=== PATIENT | male | born 1980 | race Caucasian/White ===

== ENCOUNTER 2018-06-19 04:43 | Outpatient (CLI) | payer MEDICAID, SELFPAY ==
[2018-06-19 11:09] LABS: ALT 26 U/L (12-78); AST 19 U/L (15-37); Albumin 3.9 g/dL (3.4-5.0); Alkaline Phosphatase 84 U/L (46-116); Anion Gap 8.9 mmol/L (3-11); BUN 17 mg/dL (7-18); Bilirubin, Total 0.4 mg/dL (0.2-1.0); CO2 28.1 mmol/L (21.0-32.0); CREATININE 1.06 mg/dL (0.70-1.30); Calcium 9.6 mg/dL (8.5-10.1); Chloride 103 mmol/L (98-107); Cholesterol 174 mg/dL (50-200); Glucose 95 mg/dL (70-100); HDL Cholesterol 35 mg/dL (40-60); LDL CHOLESTEROL 127 mg/dL (<100); Potassium 4.3 mmol/L (3.5-5.1); Sodium 140 mmol/L (136-145); Total Protein 7.5 g/dL (6.4-8.2); Triglyceride 67 mg/dL (30-150)
[2018-06-19 11:12] LABS: HCT 46.9 % (40.0-50.0); HGB 15.8 g/dL (13.5-17.5); Mean Corp. HGB Concentration 33.7 g/dL (32.0-36.0); Mean Corpuscular Hemoglobin 29.8 pg (27.0-33.0); Mean Corpuscular Volume 88.3 fL (80-95); Mean Platelet Volume 11.2 fL (8.0-11.0); Platelet Count 219 x1000/uL (130-400); RBC 5.31 m/cumm (4.50-6.00); RBC Distribution Width 13.1 % (11.8-14.1); White Blood Cell Count 5.29 k/cumm (4.4-10.8)
== END 2018-06-19 05:03 ==
PROVIDERS: PCP Family Medicine; Visit Provider Family Medicine
DX: E03.0 Congenital hypothyroidism with diffuse goiter (principal); Z00.00 Encounter for general adult medical examination without abnormal findings
CPT/HCPCS: 36415; 80053; 80061; 83721; 85027

== ENCOUNTER 2019-10-27 08:45 | Outpatient (CLI) | payer MEDICAID, SELFPAY ==
[2019-10-27 12:51] LABS: ALT 25 U/L (16-63); AST 26 U/L (15-37); Albumin 3.7 g/dL (3.4-5.0); Alkaline Phosphatase 83 U/L (46-116); Anion Gap 9.5 mmol/L (3-11); BUN 16 mg/dL (7-18); Bilirubin, Total 0.3 mg/dL (0.2-1.0); CO2 25.5 mmol/L (21.0-32.0); Calculated LDL 89 mg/dL (<100); Chloride 106 mmol/L (98-107); Cholesterol 149 mg/dL (<200); Glucose 100 mg/dL (74-106); HDL Cholesterol 32 mg/dL (40-60); Potassium 4.3 mmol/L (3.5-5.1); Sodium 141 mmol/L (136-145); Total Protein 6.7 g/dL (6.4-8.2); Triglyceride 143 mg/dL (<150)
== END 2019-10-27 09:05 ==
PROVIDERS: PCP Family Medicine; Visit Provider Family Medicine
DX: E78.6 Lipoprotein deficiency (principal); R03.0 Elevated blood-pressure reading, without diagnosis of hypertension
CPT/HCPCS: 36415; 80053; 80061

== ENCOUNTER 2020-06-17 13:42 | Emergency (ER) | payer MEDICAID, SELFPAY ==
[2020-06-17] VITALS (16 sets, daily range): BP systolic 118–137; BP diastolic 64–74; PULSE 87–102; RESP 12–23; TEMP 36.3; O2SAT 96–100
--- NOTE | 2020-06-17 13:45 | RT.EKG_ITS ---
APPROVED REPORT Exam: Resting ECG Patient Location: E HR:95 bpm ECG Measurements Heart Rate [address] 180 P 37 QRSd 101 QRS 43 QT 373 T -24 QTc 468 Conclusion Sinus rhythm. No STEMI
[2020-06-17 14:24] LABS: Abs Immature Grans 0.04 10^3/uL (0.0-0.06); Absolute Basophil Count 0.03 10^3/uL (0.0-0.2); Absolute Monocyte Count 0.84 10^3/uL (0.1-0.8); Basophils % 0.2; Eosinophils % 0.2; HCT 48.2 % (40.0-50.0); HGB 16.3 g/dL (13.5-17.5); Immature Grans % 0.3; Lymphocytes % 13.1; MCH 30.2 pg (27.0-33.0); MCHC 33.8 % (32.0-36.0); MCV 89.4 fL (80-95); MPV 10.2 fL (8.0-11.0); Monocytes % 6.3; Neutrophils % 79.9; Nucleated RBC 0 %; Platelet Count 262 10^3/uL (130-400); RBC 5.39 10^6/uL (4.36-5.78); RDW 12.1 % (11.8-14.1); RDW-SD 39.7 fL; WBC 13.33 10^3/uL (4.4-10.8)
[2020-06-17 14:25] LABS: Absolute Eosinophil Count 0.03 10^3/uL (0.0-0.7); Absolute Lymphocyte Count 1.75 10^3/uL (1.2-3.4); Absolute Neutrophil Count 10.65 10^3/uL (1.2-6.7)
[2020-06-17] MEDS: Meclizine 25 MG TAB PO (14:35)
[2020-06-17 14:45] LABS: ALT 35 U/L (16-63); AST 22 U/L (15-37); Albumin 3.9 g/dL (3.4-5.0); Alkaline Phosphatase 100 U/L (46-116); Anion Gap 11.9 mmol/L (3-11); BUN 15 mg/dL (7-18); Bilirubin, Total 0.5 mg/dL (0.2-1.0); CO2 27.1 mmol/L (21.0-32.0); CREATININE 1.3 mg/dL (0.70-1.30); Calcium 9.1 mg/dL (8.5-10.1); Chloride 102 mmol/L (98-107); Glucose 154 mg/dL (74-106); Potassium 3.3 mmol/L (3.5-5.1); Sodium 141 mmol/L (136-145); Total Protein 8.1 g/dL (6.4-8.2)
[2020-06-17 14:51] LABS: Troponin I < 0.05 ng/mL (<0.06)
--- NOTE | 2020-06-17 15:07 | DI.CT_ITS ---
EXAM: CT BRAIN NECK CTA CLINICAL HISTORY: cracked neck dizzy one hour later. TECHNIQUE: Imaging Protocol: Axial CT angiography was performed with multi-slice acquisition and mu lti-planar and/or 3D reconstructions. CONTRAST MATERIAL: Intravenous: Omnipaque 350 Contrast volume:85 cc COMPARISON: No exams were available for comparison FINDINGS: CTA Neck W: Aortic arch anatomy: The aortic arch anatomy is conventional. Anterior circulation: There is no significant stenosis at the origin of the great vessels off the aortic arch. Both common carotid arteries ascend with normal luminal diameters. No significant thrombosis. No significant a therosclerotic disease at the carotid bifurcations on either side nor in the proximal internal caroti d arteries and the internal carotid arteries exhibit normal diameters in the upper neck. Also shown to be patent in the skull base-carotid canals. Posterior circulation: Both vertebral arteries originated conventional fashion off of the subclavian arteries. Both vessels are patent in the foramen transverse area and without evidence of intraluminal thrombus nor dissecti on. Both vertebral arteries contribute to the formation of the basilar artery at the skull base. Po sterior inferior cerebellar arteries arise off the vertebral arteries at the skull base. CTA Brain W: Anterior circulation: Both internal carotid arteries are patent in the skull base as well as within the cavernous sinuses. Supraclinoid aspects of vessels are patent and nonaneurysmal. Both middle cerebral arteries are dem onstrated be patent out to the sylvian fissure branches. No evidence of intraluminal thrombus. No a neurysms in these vessels. Both A1 segments are patent as are the anterior cerebral arteries and there is no evidence of aneurys m at the level of the anterior communicating artery nor elsewhere in the [id number]-jh-Xiktns. Posterior circulation: Basilar artery is formed by both vertebral arteries at the skull base. Superiorly gives off superior cerebellar arteries bilaterally and above this level terminates as patent bilateral posterior cerebr al arteries. CT BRAIN: There is no evidence of intracranial hemorrhage, mass effect, or shift of midline structures. No ext ra-axial fluid collections. Ventricles are not enlarged or shifted there is no blood within the vent ricular system nor within the basal cisterns. There are no ring enhancing lesions in the brain. The re is no abnormal meningeal enhancement. IMPRESSION: 1. Patent carotid and vertebral arteries in the neck. No significant stenosis. No dissection. 2. Patent intracranial arteries. No intraluminal thrombus. No aneurysms. 3. No acute intracranial findings. No ring enhancing lesions in the brain. No abnormal meningeal enhancement. RADIATION DOSE DELIVERED: 2,635.71mGy.cm Total DLP DATA REPOSITORY: All CT scans at this facility are submitted to the National Radiology Data Registry (NRDR) Dose Index Registry (DIR) with the [employer] (A[employer]). RADIATION OPTIMIZATION: All CT scans at this facility use at least one of these dose optimization te chniques: automated exposure control; mA and/or kV adjustment per patient size (includes targeted exa ms where dose is matched to clinical indication); or iterative reconstruction.
[2020-06-17] MEDS: Omnipaque 350 MG/ML 100 ML BTL IJ (15:08)
[2020-06-17] MEDS: Normal Saline Flush 10 ML SYR IVP (15:09)
[2020-06-17] MEDS: Metoclopramide 10 MG/2 ML VIAL IVP (15:09)
[2020-06-17] MEDS: Normal Saline 1,000 ML 1000 ML IV (15:09)
[2020-06-17] MEDS: Normal Saline 50 ML (15:10)
[2020-06-17] MEDS: Normal Saline - Diluent 50 ML VIAL IV (15:10)
--- NOTE | 2020-06-17 15:41 | W.ED.GENAD ---
Discharge Plan Disposition Patient Disposition: HOME Condition: Good Discharge Details Clinical Impression: Dizziness Primary Care Provider: Julio Young ED Provider: Bernarda Blake Home Meds and New Rx's Prescriptions: New meclizine 25 mg tablet 25 mg PO TID PRNQty: 14 RF: 0 No Action vitamin E (dl, acetate) 400 unit capsule 400 unit PO DAILY RF: 0 [id number]-rupfxbxk-[id number]-C-Mn 500-400-667 mg-mg-unit capsule PO RF: 0 ibuprofen 800 mg tablet 800 mg PO TID PRN (Reason: pain) Qty: 30 RF: 2 Centrum Complete 1 EACH tablet 1 tab-cap PO DAILY RF: 0 Discharge Instructions Instructions: Vertigo (DC), Dizziness (ED) Additional Instructions: Keep yourself hydrated Meclizine as needed for dizziness Return earlier should you have worsening dizziness uncontrolled with meclizine, headache, vision change, or with any new Discharge Data Discharge Date/Time-TO BE ENTERED AT DEPARTURE: 06/17/20 16:05 Medical Decision Making CTA head and neck does not show acute pathology per radiology interpretation, with Dr. Shaw After meclizine and Reglan, patient ambulatory with steady gait, orthostatic negative, feels very much symptomatically improved Discharged home on meclizine, patient BPPV Asthma without or ominous pathology such as carotid section Clinically low suspicion for acute posterior and given resolution of symptoms with medication and absence of clinical findings suspicious for central process on exam today Discussed patient expressed understanding Recheck with primary care physician patient recommended Differential Diagnosis Differential Diagnosis: Labyrinthitis, vertigo, CVA, dissection Medical Records Medical records reviewed: Yes I reviewed the patient's medical records. HPI This 40-year-old male with history of morbid obesity, hyperlipidemia presents with report of acute onset of spinning and nausea. He states that he cracked his neck while here eating lunch and approximately half an hour later became very dizzy. He describes it as a spinning sensation. He states he had a similar episode when he awoke several years ago but has not had these symptoms at that time. He denies any change in vision or strength or sensation change. He states when he opens his eyes or moves his head his symptoms are dramatically worsened. He denies any neck pain. Denies chest pain or shortness of breath. Denies any additional falls or injuries. General Date/Time Provider Initiated Documentation: 06/17/20 13:42. Related Data Home Medications Medication Instructions Recorded Confirmed Centrum Complete 1 tab-cap PO DAILY tab-cap 05/21/12 06/17/20 glucosamine 500 cap PO cap 06/18/18 10/27/19 ec-ginaxkkjm-kycfhscw comp 400 mg-D3 667 unit-C-Mn cap vitamin E (dl, acetate) 400 unit 400 unit PO DAILY 06/18/18 06/17/20 capsule ibuprofen 800 mg tablet 800 mg PO TID PRN #30 tab 10/27/19 06/17/20 meclizine 25 mg PO TID PRN #14 tab 06/17/20 Previous Rx's Medication Instructions Recorded ibuprofen 800 mg tablet 800 mg PO TID PRN #30 tab 10/27/19 meclizine 25 mg PO TID PRN #14 tab 06/17/20 Allergies Allergy/AdvReac Type Severity Reaction Status Date / Time No Known Allergies Allergy Unverified 10/27/19 08:13 General Stated Complaint: Dizzy/Sync DENNIS: 3 Review of Systems Narrative: Review of systems obtained x7 aside from where indicated in HPI [facility] Medical History (Updated 06/17/20 @ 15:57 by THIAGO Gentile) Herniation of nucleus pulposus L4/5 Surgical History History of discectomy Family History Mother No problems noted. Father Hypertension Brother No problems noted. Maternal Grandfather Hypertension Paternal Grandfather , AGE 50 Alcohol abuse Maternal Grandmother No problems noted. Paternal Grandmother Breast cancer Son No problems noted. Son No problems noted. Son No problems noted. Social History Smoking/Tobacco Use Status: Former Tobacco Use Quit Date: 06/18/99 Smoking risk assessment performed?: Yes Alcohol Intake: current Alcohol Intake frequency: a few times a month Alcohol type: beer and hard liquor Drug use: Never Substance use type: does not use Caregiver/Support person: No Household members: spouse and children Housing: house Communication Needs: None Do you need help understanding health information?: Rarely Pets and animals: Yes Pets and animals: cat(s) Sexually active: Yes Do you think of yourself as: straight/heterosexual Current gender identity: male What is your relationship status?: How often do you talk on the phone with friends or family?: three or more times per week How often do you get together with friends or relatives?: once per week How often do you attend jehovah's witness or buddhist services?: 1-3 times per year Do you belong to any clubs or organized social groups?: no Panel score (0-1 are the most socially isolated patients): 2 What type of physical activity do you participate in: weight lifting Duration: 30-45 minutes/day Frequency: 3-4 times per week Amanda/Christianity: Amish Special amanda needs: No Seatbelt use: sometimes Helmet use: No Drive intox or ride w/intox coach driver: No Do you feel safe at home: Yes Do you feel safe in your relationship?: Yes Exam Const General: cooperative and comfortable Orientation: oriented x3 HENMT Head: normal to inspection Mouth: oral mucosae normal Throat: uvula midline Eyes Other: Pupils equal round reactive to light and accommodation, horizontal nystagmus Neck Other: No carotid bruit Resp Effort & Inspection: normal respiratory effort Auscultation: clear to auscultation bilaterally Cardio Rate: regular rate Rhythm: regular rhythm GI Inspection: normal to inspection Skin General skin exam: no rashes or lesions noted Neuro General: patient alert and patient oriented x3 Cranial Nerves: CN's II-XI intact bilaterally and tongue midline Cognition: normal cognition Speech: speech normal Gait: normal gait Motor: no pronator drift Coordination: kyigvb-av-ghio test normal Other: Patient is intact to bilateral, sensation intact distally all extremities Course Vital Signs Vital signs: Vital Signs Temperature 36.3 C L 06/17/20 13:50 Pulse 96 H 06/17/20 13:50 Respiratory Rate 19 06/17/20 13:50 Blood Pressure 137/74 06/17/20 13:50 Pulse Oximetry 99 06/17/20 13:50 Temperature 36.3 C L 06/17/20 13:50 Temperature Source Oral 06/17/20 13:50 Pulse 93 H 06/17/20 15:32 Pulse 99 H 06/17/20 15:32 Respiratory Rate 12 06/17/20 15:32 Respiratory Effort Non-Labored 06/17/20 14:04 Blood Pressure 127/70 06/17/20 15:32 Blood Pressure Mean 82 06/17/20 15:32 Blood Pressure Position Sitting 06/17/20 13:50 Pulse Oximetry 98 06/17/20 15:32 Oxygen Delivery Method Room Air 06/17/20 13:50 Oxygen Flow Rate 0 06/17/20 13:50 Pain Level 0 06/17/20 13:50 Lab/Test Results Lab/Test Results: Laboratory Tests Range/Units 06/17/20 06/17/20 14:00 14:00 WBC (4.4-10.8) 10^3/uL 13.33 H RBC (4.36-5.78) 10^6/uL 5.39 Hgb (13.5-17.5) g/dL 16.3 Hct (40.0-50.0) % 48.2 MCV (80-95) fL 89.4 MCH (27.0-33.0) pg 30.2 MCHC (32.0-36.0) % 33.8 RDW (11.8-14.1) % 12.1 Plt Count (130-400) 10^3/uL 262 MPV (8.0-11.0) fL 10.2 Immature Gran % 0.3 Neutrophils % 79.9 Lymphocytes % 13.1 Monocytes % 6.3 Eosinophils % 0.2 Basophils % 0.2 Nucleated RBC % % 0 Absolute Neutrophils (1.2-6.7) 10^3/uL 10.65 H Absolute Lymphocytes (1.2-3.4) 10^3/uL 1.75 Absolute Monocytes (0.1-0.8) 10^3/uL 0.84 H Absolute Eosinophils (0.0-0.7) 10^3/uL 0.03 Absolute Basophils (0.0-0.2) 10^3/uL 0.03 Sodium (136-145) mmol/L 141 Potassium (3.5-5.1) mmol/L 3.3 L Chloride (98-107) mmol/L 102 Carbon Dioxide (21.0-32.0) mmol/L 27.1 Anion Gap (3-11) mmol/L 11.9 H BUN (7-18) mg/dL 15 Creatinine (0.70-1.30) mg/dL 1.3 Estimated GFR/1.73 m2 (mL/min/1.73m2) >= 60.00 Glucose (74-106) mg/dL 154 H Calcium (8.5-10.1) mg/dL 9.1 Magnesium (1.8-2.4) mg/dL 2.0 Total Bilirubin (0.2-1.0) mg/dL 0.5 AST (15-37) U/L 22 ALT (16-63) U/L 35 Alkaline Phosphatase (46-116) U/L 100 Troponin I (<0.06) ng/mL < 0.05 Total Protein (6.4-8.2) g/dL 8.1 Albumin (3.4-5.0) g/dL 3.9
== END 2020-06-17 16:05 | disposition home or self-care (01) ==
LOC: ER 16:08
PROVIDERS: Emergency Provider Physician Assistant; PCP Family Medicine
DX: R42 Dizziness and giddiness (principal)
CPT/HCPCS: 36416; 70496; 70498; 80053; 82962; 93005; 96374; 99285; 83735; 84484; 85025; 93010; 99283; J2765; J3490

== ENCOUNTER 2020-06-29 03:31 | Outpatient (CLI) | payer MEDICAID, SELFPAY ==
[2020-06-29 12:35] LABS: Hemoglobin A1C 5.4 % (<5.7)
[2020-06-29 12:44] LABS: Calculated LDL 126 mg/dL (<100); Cholesterol 180 mg/dL (<200); HDL Cholesterol 35 mg/dL (40-60); TSH (W/Ref FT4) 2.64 uIU/mL (0.36-3.74); Triglyceride 99 mg/dL (<150)
[2020-06-29 16:57] LABS: PSA, Screening 0.6 ng/mL (0.0-2.5)
== END 2020-06-29 03:32 | disposition home or self-care (01) ==
LOC: LOS 03:31
PROVIDERS: PCP Family Medicine; Visit Provider Nurse Practitioner Family
DX: Z13.220 Encounter for screening for lipoid disorders (principal); Z13.1 Encounter for screening for diabetes mellitus; Z13.29 Encounter for screening for other suspected endocrine disorder; Z12.5 Encounter for screening for malignant neoplasm of prostate
CPT/HCPCS: 36415; 80061; 84153; 83036; 84443

== ENCOUNTER 2021-06-21 16:38 | Outpatient (REF) | payer MEDICAID, SELFPAY ==
[2021-06-21 20:35] LABS: Bilirubin Negative (Negative); Blood Negative (Negative); Clarity Clear (Clear); Glucose Negative (Negative); Ketones Negative (Negative); Leukocyte Esterase Negative (Negative); Nitrite Negative (Negative); Specific Gravity 1.025 (1.005-1.025); Urobilinogen 0.2 EU/dL (Up TO 0.2)
== END 2021-06-21 16:39 | disposition home or self-care (01) ==
LOC: LBN 16:38
PROVIDERS: PCP Nurse Practitioner Family; Visit Provider Nurse Practitioner Family
DX: N48.89 Other specified disorders of penis (principal)
CPT/HCPCS: 81003

== ENCOUNTER 2022-05-09 10:00 | Outpatient (CLI) | payer MEDICAID, SELFPAY ==
[2022-05-09 11:34] LABS: ALT 29 U/L (16-63); AST 19 U/L (15-37); Albumin 3.9 g/dL (3.4-5.0); Alkaline Phosphatase 92 U/L (46-116); BUN 14 mg/dL (7-18); Bilirubin, Total 0.5 mg/dL (0.2-1.0); Calcium 9.5 mg/dL (8.5-10.1); Chloride 105 mmol/L (98-107); Estimated GFR 97.58 (mL/min/1.73m2); Glucose 99 mg/dL (74-106); Potassium 4.2 mmol/L (3.5-5.1); Sodium 141 mmol/L (136-145); Total Protein 7.8 g/dL (6.4-8.2)
[2022-05-09 19:18] LABS: PSA, Screening 0.6 ng/mL (<=2.5)
== END 2022-05-09 10:01 | disposition home or self-care (01) ==
LOC: LBO 10:01 → LBN 11:17
PROVIDERS: PCP Nurse Practitioner Family; Visit Provider Nurse Practitioner Gerontology
DX: R36.1 Hematospermia (principal)
CPT/HCPCS: 80053; 84153; 84550

== ENCOUNTER 2023-07-10 05:05 | Outpatient (CLI) | payer BC, SELFPAY ==
[2023-07-10 12:24] LABS: HCT 47.6 % (40.0-50.0); HGB 15.7 g/dL (13.5-17.5); MCH 30.1 pg (27.0-33.0); MCV 91 fL (80-95); MPV 10.5 fL (8.0-11.0); Platelet Count 262 10^3/uL (130-400); RBC 5.21 10^6/uL (4.36-5.78); RDW 12.8 % (11.8-14.1); RDW-SD 43.5 fL; WBC 6.71 10^3/uL (4.4-10.8)
[2023-07-10 12:39] LABS: CREATININE 1.1 mg/dL (0.70-1.30); Calculated LDL 118 mg/dL (<100); Cholesterol 174 mg/dL (<200); Estimated GFR 85.95 (mL/min/1.73m2); HDL Cholesterol 40 mg/dL (40-60); Hemoglobin A1C 5.6 % (<5.7); Potassium 4.2 mmol/L (3.5-5.1); Triglyceride 81 mg/dL (<150)
== END 2023-07-10 05:06 | disposition home or self-care (01) ==
LOC: LOS 05:05
PROVIDERS: PCP Nurse Practitioner Family; Visit Provider Nurse Practitioner Family
DX: I10 Essential (primary) hypertension (principal); E78.2 Mixed hyperlipidemia; Z00.00 Encounter for general adult medical examination without abnormal findings; Z13.1 Encounter for screening for diabetes mellitus
CPT/HCPCS: 36415; 80061; 85027; 82565; 83036; 84132

== ENCOUNTER 2024-07-10 08:56 | Outpatient (CLI) | payer BC, SELFPAY ==
[2024-07-10 12:42] LABS: ALT 25 U/L (16-63); AST 22 U/L (15-37); Albumin 3.7 g/dL (3.4-5.0); Alkaline Phosphatase 89 U/L (46-116); Anion Gap 6.6 mmol/L (3-11); BUN 12 mg/dL (7-18); Bilirubin, Total 0.5 mg/dL (0.2-1.0); CO2 29.4 mmol/L (21.0-32.0); CREATININE 1.2 mg/dL (0.70-1.30); Calcium 9.6 mg/dL (8.5-10.1); Chloride 106 mmol/L (98-107); Estimated GFR 76.95 (mL/min/1.73m2); Glucose 94 mg/dL (74-106); Potassium 4.5 mmol/L (3.5-5.1); Sodium 142 mmol/L (136-145); Total Protein 7.6 g/dL (6.4-8.2)
[2024-07-10 12:49] LABS: Hemoglobin A1C 5.3 % (<5.7)
[2024-07-10 13:39] LABS: Calculated LDL 132 mg/dL (<100); Cholesterol 194 mg/dL (<200); HDL Cholesterol 47 mg/dL (>or=40); Triglyceride 75 mg/dL (<150)
== END 2024-07-10 08:57 | disposition home or self-care (01) ==
PROVIDERS: PCP Nurse Practitioner Family; Referring Provider Nurse Practitioner Family; Visit Provider Nurse Practitioner Family
DX: Z13.1 Encounter for screening for diabetes mellitus (principal); Z13.220 Encounter for screening for lipoid disorders; E78.2 Mixed hyperlipidemia; I10 Essential (primary) hypertension
CPT/HCPCS: 36415; 80053; 80061; 83036